=== PATIENT | female | born 1980 | race Caucasian/White ===

== ENCOUNTER → 2016-07-09 | Outpatient (CLI) | payer OTHER ==
--- NOTE | 2016-07-09 17:00 | US ---
EXAMINATION: Obstetric ultrasound HISTORY: Diabetes COMPARISON: 07/02/2016 TECHNIQUE: Grayscale, color Doppler, and spectral Doppler images obtained. FINDINGS: There is a single live intrauterine in a cephalic position. The heart rate is 15 3 bpm. Amniotic fluid index is prominent at 23.4 cm. Is positive breathing, movement, and tone . IMPRESSION: Biophysical profile 12/16.
== END ==
LOC: MW.US 14:48
PROVIDERS: ATTEND Advanced Practice Midwife
DX: O24.414 Gestational diabetes mellitus in pregnancy, insulin controlled (principal)
CPT/HCPCS: 76819; 76819-26

== ENCOUNTER 2016-07-24 03:16 | Inpatient (IN) | payer OTHER ==
[2016-07-24] MEDS ORDERED: Sodium Chloride 0.9% 2.5 ML Syringe FLUSH PRN (04:34)
[2016-07-24] MEDS ORDERED: Misoprostol 200 MCG Tab PO PRN (04:34)
[2016-07-24] MEDS ORDERED: Lidocaine 1% 50 ML MDV INJECT PRN (04:34)
[2016-07-24] MEDS ORDERED: Carboprost Tromethamine 250 MCG/1 ML Amp IM PRN (04:34)
[2016-07-24] MEDS ORDERED: Butorphanol 1 MG/ML SDV IVPUSH PRN (04:34)
[2016-07-24] MEDS ORDERED: Methylergonovine 0.2 MG/1 ML Amp IM PRN (04:34)
[2016-07-24] MEDS ORDERED: Nalbuphine 10 MG/1 ML Vial IVPUSH PRN (04:34)
[2016-07-24] MEDS ORDERED: Sodium Chloride 0.9% 10 ML Syringe FLUSH PRN (04:34)
[2016-07-24] MEDS ORDERED: Water For Irrigation,Sterile 1,000 ML Container IRR PRN (04:34)
[2016-07-24] MEDS ORDERED: Oxytocin/Lactated Ringers 30 UNIT/500 ML BAG IV SCH (04:45)
[2016-07-24] MEDS ORDERED: Oxytocin/Lactated Ringers 30 UNIT/500 ML BAG ONE (08:08)
[2016-07-24] MEDS ORDERED: fentaNYL 100 MCG/2 ML SDV ONE (09:24)
[2016-07-24] MEDS ORDERED: Ropivacaine HCl/PF 100 ML ONE (09:27)
[2016-07-24] MEDS ORDERED: Ampicillin 2 GM in Sodium Chloride 0.9% 100 ML IV ONE (09:30)
[2016-07-24] MEDS: Lactated Ringers 1,000 ML IV SCH ×2 (09:38→12:36)
--- NOTE | 2016-07-24 10:05 | PCM.PREANE ---
Preanesthetic Assessment - Anesthesia/Transfusion/Family Hx Anesthesia History: Prior Anesthesia Without Reaction - Review of Systems Other: Reports: None - Physical Assessment Height: 5 ft 6 in Weight: 117.934 kg ASA Class: 3 Mental Status: Alert & Oriented x3 Airway Class: Mallampati = 2 Dentition: Reports: Normal Dentition Thyro-Mental Finger Breadths: 3 Mouth Opening Finger Breadths: 3 ROM/Head Extension: Full Lungs: Clear to auscultation, Normal respiratory effort Cardiovascular: Regular Rate, Regular Rhythm - Lab Values: Laboratory Last Values WBC 12.03 K/uL (4.0-11.0) H 07/24/16 04:46 RBC 4.93 M/uL (4.30-5.90) 07/24/16 04:46 Hgb 12.7 g/dL (12.0-16.0) 07/24/16 04:46 Hct 38.9 % (36.0-46.0) 07/24/16 04:46 MCV 78.9 fL (80.0-98.0) L 07/24/16 04:46 MCH 25.8 pg (27.0-32.0) L 07/24/16 04:46 MCHC 32.6 g/dL (31.0-37.0) 07/24/16 04:46 RDW Std Deviation 42.6 fl (28.0-62.0) 07/24/16 04:46 RDW Coeff of Glenis 15 % (11.0-15.0) 07/24/16 04:46 Plt Count 153 K/uL (150-400) 07/24/16 04:46 MPV 11.30 fL (7.40-12.00) 07/24/16 04:46 Nucleated RBC % 0.0 /100WBC 07/24/16 04:46 Nucleated RBCs # 0 K/uL 07/24/16 04:46 POC Glucose 120 mg/dL (60-110) H 07/24/16 08:19 Membrane Rupture POSITIVE 07/24/16 03:45 Blood Type B POSITIVE 07/24/16 04:46 Antibody Screen NEGATIVE 07/24/16 04:46 - Allergies Allergies/Adverse Reactions: Allergies Allergy/AdvReac Type Severity Reaction Status Date / Time Sulfa (Sulfonamide Allergy Hives Verified 11/08/14 17:38 Antibiotics) - Acknowledgements Anesthesia Type Planned: Epidural Pt an Appropriate Candidate for the Planned Anesthesia: Yes Alternatives and Risks of Anesthesia Discussed w Pt/Guardian: Yes Pt/Guardian Understands and Agrees with Anesthesia Plan: Yes PreAnesthesia Questionnaire HEENT History: Reports: None Cardiovascular History: Reports: None Respiratory History: Reports: None Gastrointestinal History: Reports: GERD Genitourinary History: Reports: None RIDE OPERATOR History: Reports: : 7 Para: 4 LMP (Approximate): Musculoskeletal History: Reports: None Neurological History: Reports: None Psychiatric History: Reports: None Endocrine/Metabolic History: Reports: Diabetes, gestational Hematologic History: Reports: None Immunologic History: Reports: None Oncologic (Cancer) History: Reports: None Dermatologic History: Reports: None - Infectious Disease History Infectious Disease History: Reports: None - Past Surgical History HEENT Surgical History: Reports: Tonsillectomy GI Surgical History: Reports: Cholecystectomy - SUBSTANCE USE Smoking Status *Q: Never Smoker Recreational Drug Use History: No - HOME MEDS Home Medications: Home Meds Acetaminophen [Tylenol Extra Strength] 500 mg PO Q4H PRN #1 tablet 11/15/14 [Rx] Ibuprofen [Motrin] 400 mg PO Q4H PRN #1 tablet 11/15/14 [Rx] Lanolin [Lansinoh HPA] 1 g TOP ASDIRECTED PRN #1 crm 11/15/14 [Rx] - CURRENT (IN HOUSE) MEDS Current Meds: Current Medications Butorphanol Tartrate (Stadol) 1 mg IVPUSH ASDIRECTED PRN PRN Reason: Pain Carboprost Tromethamine (Hemabate Ds) 250 mcg IM ASDIRECTED PRN PRN Reason: Post Hemorrhage Lactated Ringer's (Ringers, Lactated) 1,000 mls @ 150 mls/hr IV ASDIRECTED [place] Last Admin: 07/24/16 09:38 Dose: 150 mls/hr Lidocaine HCl (Xylocaine 1%) 50 ml INJECT .ONCE PRN PRN Reason: Laceration repair Methylergonovine Maleate (Methergine) 0.2 mg IM ASDIRECTED PRN PRN Reason: Post Hemorrhage Misoprostol (Cytotec) 200 mcg PO .ONCE PRN PRN Reason: Post Hemorrhage Nalbuphine HCl (Nubain) 10 mg IVPUSH ASDIRECTED PRN PRN Reason: Pain (severe 7-10) Stop: 07/26/16 04:35 Sodium Chloride (Saline Flush) 10 ml FLUSH ASDIRECTED PRN PRN Reason: Keep Vein Open Sodium Chloride (Saline Flush) 2.5 ml FLUSH ASDIRECTED PRN PRN Reason: Keep Vein Open Sterile Water (Sterile Water For Irrigation) 1,000 ml IRR ASDIRECTED PRN PRN Reason: delivery Discontinued Medications Fentanyl (Sublimaze) Confirm Administered Dose 100 mcg .ROUTE .STK-MED ONE Stop: 07/24/16 09:25 Oxytocin/Lactated Ringer's (Pitocin In Lr 30 Units/500 Ml) 30 unit in 500 mls @ 999 mls/hr IV TITRATE [place] PRN Reason: 999 MUNITS/MIN Stop: 07/24/16 05:16 Oxytocin/Lactated Ringer's (Pitocin In Lr 30 Units/500 Ml) Confirm Administered Dose 30 unit in 500 mls @ as directed .ROUTE .STK-MED ONE Stop: 07/24/16 08:09 Ampicillin Sodium 2 gm/ Sodium (Chloride) 100 mls @ 200 mls/hr IV ONETIME ONE Stop: 07/24/16 09:59 Last Admin: 07/24/16 09:39 Dose: 200 mls/hr Ropivacaine (Naropin 0.2%) Confirm Administered Dose 100 mls @ as directed .ROUTE .STK-MED ONE Stop: 07/24/16 09:28 Preanesthetic Assessment - PHYSICAL ASSESSMENT Height: 5 ft 6 in Weight: 117.934 kg - LAB Values: Laboratory Last Values WBC 12.03 K/uL (4.0-11.0) H 07/24/16 04:46 RBC 4.93 M/uL (4.30-5.90) 07/24/16 04:46 Hgb 12.7 g/dL (12.0-16.0) 07/24/16 04:46 Hct 38.9 % (36.0-46.0) 07/24/16 04:46 MCV 78.9 fL (80.0-98.0) L 07/24/16 04:46 MCH 25.8 pg (27.0-32.0) L 07/24/16 04:46 MCHC 32.6 g/dL (31.0-37.0) 07/24/16 04:46 RDW Std Deviation 42.6 fl (28.0-62.0) 07/24/16 04:46 RDW Coeff of Glenis 15 % (11.0-15.0) 07/24/16 04:46 Plt Count 153 K/uL (150-400) 07/24/16 04:46 MPV 11.30 fL (7.40-12.00) 07/24/16 04:46 Nucleated RBC % 0.0 /100WBC 07/24/16 04:46 Nucleated RBCs # 0 K/uL 07/24/16 04:46 POC Glucose 120 mg/dL (60-110) H 07/24/16 08:19 Membrane Rupture POSITIVE 07/24/16 03:45 Blood Type B POSITIVE 07/24/16 04:46 Antibody Screen NEGATIVE 07/24/16 04:46 - ALLERGIES Allergies/Adverse Reactions: Allergies Allergy/AdvReac Type Severity Reaction Status Date / Time Sulfa (Sulfonamide Allergy Hives Verified 11/08/14 17:38 Antibiotics)
[2016-07-24] MEDS ORDERED: Docusate Sodium 100 MG Cap PO PRN (14:57)
[2016-07-24] MEDS ORDERED: Lanolin 100% Cream 7 GM Tube TOP PRN (14:57)
[2016-07-24] MEDS ORDERED: Witch Hazel Medicated Pads 40/Jar TOP PRN (14:57)
[2016-07-24] MEDS ORDERED: Acetaminophen 500 MG Tab PO PRN (14:57)
[2016-07-24] MEDS ORDERED: Benzocaine/Menthol 20%-0.5% Spray 78 GM Cannister TOP PRN (14:57)
[2016-07-24] MEDS ORDERED: Bisacodyl 10 MG Supp RECTAL PRN (14:57)
[2016-07-24] MEDS ORDERED: oxyCODONE 5 MG Tab PO PRN (14:57)
[2016-07-24] MEDS ORDERED: Ibuprofen 800 MG Tab PO PRN (14:57)
--- NOTE | 2016-07-24 18:10 | PCM.PNPP ---
- General Info Date of Service: 07/24/16 Functional Status: Reports: pain controlled, tolerating diet, ambulating, urinating - Review of Systems General: Reports: No Symptoms HEENT: Reports: no symptoms Pulmonary: Reports: no symptoms Cardiovascular: Reports: No Symptoms Gastrointestinal: Reports: No symptoms Genitourinary: Reports: no symptoms Musculoskeletal: Reports: no symptoms Skin: Reports: no symptoms Neurological: Reports: No Symptoms Psychiatric: Reports: no symptoms - Patient Data Weight - most recent: 117.934 kg Lab Results - last 24 hrs: Laboratory Results - last 24 hr 07/24/16 07/24/16 07/24/16 Range/Units 03:45 04:46 04:46 WBC 12.03 H (4.0-11.0) K/uL RBC 4.93 (4.30-5.90) M/uL Hgb 12.7 (12.0-16.0) g/dL Hct 38.9 (36.0-46.0) % MCV 78.9 L (80.0-98.0) fL MCH 25.8 L (27.0-32.0) pg MCHC 32.6 (31.0-37.0) g/dL RDW Std Deviation 42.6 (28.0-62.0) fl RDW Coeff of Glenis 15 (11.0-15.0) % Plt Count 153 (150-400) K/uL MPV 11.30 (7.40-12.00) fL Nucleated RBC % 0.0 /100WBC Nucleated RBCs # 0 K/uL POC Glucose (60-110) mg/dL Membrane Rupture POSITIVE Blood Type B POSITIVE Antibody Screen NEGATIVE 07/24/16 07/24/16 07/24/16 Range/Units 06:16 08:19 11:05 WBC (4.0-11.0) K/uL RBC (4.30-5.90) M/uL Hgb (12.0-16.0) g/dL Hct (36.0-46.0) % MCV (80.0-98.0) fL MCH (27.0-32.0) pg MCHC (31.0-37.0) g/dL RDW Std Deviation (28.0-62.0) fl RDW Coeff of Glenis (11.0-15.0) % Plt Count (150-400) K/uL MPV (7.40-12.00) fL Nucleated RBC % /100WBC Nucleated RBCs # K/uL POC Glucose 99 120 H 121 H (60-110) mg/dL Membrane Rupture Blood Type Antibody Screen Med Orders - Current: Current Medications Acetaminophen (Tylenol Extra Strength) 1,000 mg PO Q4H PRN PRN Reason: Pain Benzocaine/Menthol (Dermoplast Pain Relief 20%-0.5% Mio) 78 gm TOP ASDIRECTED PRN PRN Reason: Perineal Comfort Measure Bisacodyl (Dulcolax) 10 mg RECTAL .ONCE PRN PRN Reason: Constipation Docusate Sodium (Colace) 100 mg PO BID PRN PRN Reason: Constipation Emollient Ointment (Lansinoh Hpa) 0 gm TOP ASDIRECTED PRN PRN Reason: Sore Nipples Ibuprofen (Motrin) 800 mg PO Q6H PRN PRN Reason: Pain Last Admin: 07/24/16 17:01 Dose: 800 mg Oxycodone HCl (Oxycodone) 5 mg PO Q2H PRN PRN Reason: Pain Witch Nithya (Tucks) 1 pad TOP ASDIRECTED PRN PRN Reason: comfort care Discontinued Medications Butorphanol Tartrate (Stadol) 1 mg IVPUSH ASDIRECTED PRN PRN Reason: Pain Carboprost Tromethamine (Hemabate Ds) 250 mcg IM ASDIRECTED PRN PRN Reason: Post Hemorrhage Fentanyl (Sublimaze) Confirm Administered Dose 100 mcg .ROUTE .STK-MED ONE Stop: 07/24/16 09:25 Lactated Ringer's (Ringers, Lactated) 1,000 mls @ 150 mls/hr IV ASDIRECTED [facility] Last Admin: 07/24/16 12:36 Dose: 150 mls/hr Oxytocin/Lactated Ringer's (Pitocin In Lr 30 Units/500 Ml) 30 unit in 500 mls @ 999 mls/hr IV TITRATE [place] PRN Reason: 999 MUNITS/MIN Stop: 07/24/16 05:16 Last Admin: 07/24/16 13:43 Dose: 999 munits/min, 999 mls/hr Oxytocin/Lactated Ringer's (Pitocin In Lr 30 Units/500 Ml) Confirm Administered Dose 30 unit in 500 mls @ as directed .ROUTE .STK-MED ONE Stop: 07/24/16 08:09 Ampicillin Sodium 2 gm/ Sodium (Chloride) 100 mls @ 200 mls/hr IV ONETIME ONE Stop: 07/24/16 09:59 Last Admin: 07/24/16 09:39 Dose: 200 mls/hr Ropivacaine (Naropin 0.2%) Confirm Administered Dose 100 mls @ as directed .ROUTE .STK-MED ONE Stop: 07/24/16 09:28 Lidocaine HCl (Xylocaine 1%) 50 ml INJECT .ONCE PRN PRN Reason: Laceration repair Methylergonovine Maleate (Methergine) 0.2 mg IM ASDIRECTED PRN PRN Reason: Post Hemorrhage Misoprostol (Cytotec) 200 mcg PO .ONCE PRN PRN Reason: Post Hemorrhage Nalbuphine HCl (Nubain) 10 mg IVPUSH ASDIRECTED PRN PRN Reason: Pain (severe 7-10) Stop: 07/26/16 04:35 Sodium Chloride (Saline Flush) 10 ml FLUSH ASDIRECTED PRN PRN Reason: Keep Vein Open Sodium Chloride (Saline Flush) 2.5 ml FLUSH ASDIRECTED PRN PRN Reason: Keep Vein Open Sterile Water (Sterile Water For Irrigation) 1,000 ml IRR ASDIRECTED PRN PRN Reason: delivery Last Admin: 07/24/16 14:13 Dose: 1,000 ml - Interaction Infant Disposition, : [place] to Nursery Interaction: To Nursery to Visit Support Person: - Exam General: alert, oriented Lungs: Normal respiratory effort Abdomen: soft, no tenderness, no distension Extremities: No: no edema (2+ bilateral) Skin: warm, dry, intact Wound/Incisions: healing well Neurological: no new focal deficit Psy/Mental Status: alert, normal affect, normal mood - Problem List & Annotations (1) (vaginal after ) SNOMED Code(s): 304482840 Code(s): O34.21 - MATERNAL CARE FOR SCAR FROM PREVIOUS * DO NOT USE * Status: Acute Current Visit: No - Problem List Review Problem List Initiated/Reviewed/Updated: Yes - My Orders Last 24 Hours: My Active Orders 07/24/16 14:57 Patient Status [ADT] Routine May Shower [RC] ASDIRECTED Up ad Jazmin [RC] ASDIRECTED Vital Signs [RC] PER UNIT ROUTINE Acetaminophen [Tylenol Extra Strength] 1,000 mg PO Q4H PRN Benzocaine/Menthol [Dermoplast Pain Relief 20%-0.5% Mio] 78 gm TOP ASDIRECTED PRN Bisacodyl [Dulcolax] 10 mg RECTAL .ONCE PRN Docusate Sodium [Colace] 100 mg PO BID PRN Ibuprofen [Motrin] 800 mg PO Q6H PRN Lanolin [Lansinoh HPA] See Dose Instructions TOP ASDIRECTED PRN Witch Nithya [Tucks] 1 pad TOP ASDIRECTED PRN oxyCODONE 5 mg PO Q2H PRN Assess Lochia [WOMSER] Per Unit Routine Assess Uterine Involution [WOMSER] Per Unit Routine Peripheral IV Discontinue [OM.PC] Routine Resuscitation Status Routine 07/24/16 14:58 Perineal Care [OM.PC] Per Unit Routine 07/24/16 18:03 GLYCOSYLATED HEMOGLOBIN,HGBA1C [CHEM] Routine 07/24/16 18:04 HEMOGLOBIN/HEMATOCRIT,HH [HEME] Timed 07/24/16 Dinner Regular Diet [DIET] - Assessment Assessment:: PPD#0 after , stable, minimal lochia. Baby is being transferred to [place] due to hypoglycemia and therefore she requests discharge this evening. - Plan Plan:: Reviewed discharge instructions. Will get H&H and Hgb A1C prior to discharge. She needs 2 hour GTT at her 6 week visit. I reviewed delivery with her, the presence of shoulder dystocia, the appropriate maneuvers that were performed and recommend no further deliveries as this is her second dystocia.
--- NOTE | 2016-07-24 18:49 | OR ---
SURGEON: Viktoria Gudino M.D. DATE OF PROCEDURE: 07/24/2016 PREOPERATIVE DIAGNOSES: 1. A 39-week intrauterine . 2. Gestational diabetes type A2. POSTOPERATIVE DIAGNOSES: 1. A 39-week intrauterine . 2. Gestational diabetes type A2. 3. macrosomia and shoulder dystocia. ANESTHESIA: Epidural. ESTIMATED BLOOD LOSS: Less than 300 mL. FINDINGS: Live born male, score 3, 7, and 8, placenta spontaneous Schultze intact with 3 vessels. Perineum intact. BRIEF HISTORY: This is a 36-year-old female. She is G7, P4-1-1-5. She presented at 38 and 6/7th weeks gestation, having had spontaneous rupture of membranes at home. She did not initially present to Labor and Delivery, after she had allowed onset of labor at home, she presented to Labor and Delivery greater than 12 hours after spontaneous rupture of membranes. She is a patient of Rhina Hernandez. She has had 1 prior delivery, which was for a breech presentation. She has since at that time had 2 prior vaginal after . She was counseled by Rhina regarding option for or vaginal trial of labor versus delivery and desired strongly to proceed with a vaginal trial of labor. Predicted weight on 06/09/2016 was at the 46th percentile for gestational age at 2047 g. She was on glyburide orally for her gestational diabetes. She was admitted to Labor and Delivery. In Dr. Avitia's absence, I am covering for Rhina and I accepted care at 9:00 a.m. on 07/24/2016, shortly thereafter the patient had progressed to complete. DESCRIPTION OF PROCEDURE: With the patient in dorsal lithotomy position, under adequate epidural analgesia, the patient pushed over 2-hour time. At this time, I reassessed her, and there was minimal descent of the head. I felt that the fetus was in the direct occiput posterior position. She had episodes of category 2 alternating with episodes of category 1 heart tones, which resolved with positioning and oxygen. I did recommend after 2 hours of pushing, proceeding with delivery due to arrest of descent. However, the patient declined as she strongly wished to avoid a delivery and she continued to push for an additional hour to a 5+ station. Due to the fact that she had a prior delivery, I did have Dr. Lion present at delivery. Additionally, due to history of shoulder dystocia with her most recent delivery, I did also have all of the appropriate maneuvers and plan in place for shoulder dystocia. As she was pushing she pushed to a 5+ station. At this time, I placed her in the supine position with Noah maneuver employed and suprapubic pressure. She continued to push, the head was delivered. The shoulder did not immediately follow. After approximately 1 minute of attempting to rotate the shoulder anteriorly and posteriorly, I called for help including additional nursing staff, respiratory therapy, and another ERP ANALYST. With continued suprapubic pressure and Noah maneuver, I attempted to deliver the posterior shoulder, as she had very adequate room in the posterior pelvis, however, I was unable. Therefore, I worked rotating the anterior shoulder forward. The head had delivered in the left occiput anterior position and avoiding traction on the head or neck, I rotated the left shoulder posteriorly and the right shoulder anteriorly, and with this I was able to dislodge the right shoulder and deliver the remainder of the infant's body. The cord was clamped x2 and cut. Dr. Lion was immediately available for resuscitation of the . The time from delivery of the head to the shoulder was 6 minutes. The infant was a liveborn male, score 3, 7, and 8, weighing 4780 g. Pitocin was initiated after delivery of the to assist with the placenta which was delivered spontaneously Schultze intact with 3 vessels. Upon inspection of the pelvis and perineum, there were no periurethral, vaginal sidewall, cervical, or rectal lacerations. An episiotomy had not been performed as there was more than adequate room on the posterior perineum and it was not felt to be of any benefit as I could reach my entire hand posteriorly up in and beyond the baby's shoulder. Final sponge, needle, and instrument count were correct. The complication was shoulder dystocia. The infant is in nursery in stable condition. Mother remained in LDRP in good condition. KAREN / HECTOR /[id number]
--- NOTE | 2016-07-25 06:57 | PCM48HPAN ---
Post Anesthesia Note - EVALUATION WITHIN 48HRS OF ANESTHETIC Vital Signs in Normal Range: Yes Patient Participated in Evaluation: Yes Respiratory Function Stable: Yes Airway Patent: Yes Cardiovascular Function Stable: Yes Hydration Status Stable: Yes Pain Control Satisfactory: Yes Nausea and Vomiting Control Satisfactory: Yes Mental Status Recovered: Yes
--- NOTE | 2016-08-05 10:58 | PCM.HPR ---
H & P Addendum review - H & P Addendum Review Date of Original H & P: 07/24/16 Date Reviewed: 08/05/16 Patient was examined: No Changes
== END 2016-07-24 19:50 | disposition home or self-care (01) | DRG 775 ==
LOC: MW.OB 03:16 → MW.OBCHECK 03:16 → MW.OB 04:34 → OBSVTOIN 13:43 → MW.OB 17:50
PROVIDERS: ADMIT Obstetrics & Gynecology; ATTEND Obstetrics & Gynecology
PROC: 10E0XZZ Delivery of Products of Conception, External Approach (ICD-10-PCS; principal; 2016-07-24)
DX: O24.429 Gestational diabetes mellitus in childbirth, unspecified control (principal); O42.02 Full-term premature rupture of membranes, onset of labor within 24 hours of rupture; O66.0 Obstructed labor due to shoulder dystocia; O36.63X0 Maternal care for excessive fetal growth, third trimester, not applicable or unspecified; Z3A.39 39 weeks gestation of pregnancy; Z37.0 Single live birth
CPT/HCPCS: 01967; 36415; 59025; 82962; 83036; 84112; 85014; 85018; 85027; 86850; 86900; 86901; 88307; A9270-GY; J0290; J7030; J7120

== ENCOUNTER → 2016-09-08 | Outpatient (CLI) | payer OTHER | LOC: MW.CHOBGYN 07:45 | PROVIDERS: ATTEND Advanced Practice Midwife | DX: O24.414 Gestational diabetes mellitus in pregnancy, insulin controlled (principal) | CPT/HCPCS: 36415; 82947; 82950 ==